=== PATIENT | female | born 1945 | race Caucasian/White ===

== ENCOUNTER 2020-07-28 07:16 | Inpatient (IN) ==
[~2020-07-28 07:16] MED LIST: *HR* HYDROmorphone (PF) 1 MG/ML SYRINGE IVP PRN; *HR* HYDROmorphone 2 MG TABLET PO PRN; *HR* Labetalol 20 MG/4 ML SYRINGE IVP PRN; *HR* OxyCODONE Immed Rel 5 MG TABLET PO PRN; Acetaminophen IV 1,000 MG/100 ML BAG IVPB ONE; Famotidine 20 MG/2 ML VIAL IVP ONE; Vancomycin 1,000 MG, Sodium Chloride IRRigation 1,000 ML IR ONE
[2020-07-28] MEDS ORDERED: *HR* Heparin 5,000 UNIT/ML VIAL ONE (07:34)
[2020-07-28] MEDS ORDERED: *HR* Rocuronium Bromide 50 MG/5 ML VIAL ONE (07:34)
[2020-07-28] MEDS ORDERED: Lidocaine -MPF 2% 2 ML VIAL ONE ×2 (07:34→11:33)
[2020-07-28] MEDS ORDERED: *HR* Succinylcholine 200 MG/10 ML VIAL IVP ONE (07:34)
[2020-07-28] MEDS ORDERED: *HR* Propofol 200 MG/20 ML VIAL IVP ONE (07:34)
[2020-07-28] MEDS ORDERED: *HR* FentaNYL (PF) 100 MCG/2 ML VIAL ONE ×2 (07:34→10:02)
[2020-07-28] MEDS ORDERED: Ondansetron 4 MG/2 ML VIAL ONE (07:34)
[2020-07-28] MEDS ORDERED: Lidocaine -MPF 4% 5 ML AMPUL ONE (07:34)
[2020-07-28] MEDS ORDERED: Dexamethasone 4 MG/ML VIAL ONE (07:34)
[2020-07-28] MEDS ORDERED: CeFAZolin Syr 2,000MG/20 ML 2,000 MG/20 ML SYRINGE IVPB ONE (07:39)
[2020-07-28] MEDS ORDERED: Vancomycin 500 MG in 0.9 % Sodium Chloride Mini Bag 100 ML IVPB ONE ×2 (07:39→21:00)
[2020-07-28] MEDS ORDERED: Ipratropium/Albuterol Neb 3 ML IH ONE (07:44)
[2020-07-28] MEDS ORDERED: Ringers Solution, Lactated 1,000 ML IVC SCH (07:45)
[2020-07-28] MEDS ORDERED: Heparin 1,000 UNITS/500 mL 500 ML ONE (07:56)
[2020-07-28] MEDS ORDERED: Protamine Sulfate 50 MG/5 ML VIAL IVP ONE (07:56)
[2020-07-28] MEDS ORDERED: Vancomycin 1,000 MG VIAL ONE (07:56)
[2020-07-28] MEDS ORDERED: Bupivacaine-MPF 0.25% 10 ML VIAL ONE (07:56)
[2020-07-28] MEDS ORDERED: Albumin Human 5% 12.5 GM/250 ML IV.SOLN ONE ×2 (08:09→08:46)
[2020-07-28] MEDS ORDERED: NiCARdipine 2.5 MG/10 ML Syringe IVPB ONE (08:10)
[2020-07-28] MEDS ORDERED: *HR* Vasopressin 20 UNIT/ML VIAL ONE (08:10)
[2020-07-28] MEDS ORDERED: *HR* Phenylephrine 10 MG/ML VIAL ONE (08:16)
[2020-07-28] MEDS ORDERED: Acetaminophen IV 1,000 MG/100 ML BAG IVPB ONE (09:53)
[2020-07-28] MEDS ORDERED: Calcium Gluconate 1,000 MG/10 ML VIAL ONE ×2 (09:57→11:31)
[2020-07-28] MEDS ORDERED: *HR* PHENYLEPHRINE 1,000 MCG/10 ML SYRINGE IVP ONE (10:14)
[2020-07-28] MEDS ORDERED: Furosemide 40 MG/4 ML VIAL ONE (11:31)
[2020-07-28] MEDS ORDERED: Sugammadex Sodium 200 MG/2 ML VIAL IV ONE (11:33)
[2020-07-28] MEDS ORDERED: *HR* Labetalol 20 MG/4 ML SYRINGE IVP ONE (11:57)
[2020-07-28] MEDS ORDERED: *HR* HYDROcodone/Acet 5/325 mg TABLET PO PRN (13:34)
[2020-07-28] MEDS ORDERED: Acetaminophen 325 MG TABLET PO PRN (13:34)
[2020-07-28] MEDS ORDERED: *HR* LORazepam 0.5 MG TABLET PO PRN (13:34)
[2020-07-28] MEDS ORDERED: *HR* OxyCODONE Immed Rel 5 MG TABLET PO PRN (13:34)
[2020-07-28] MEDS ORDERED: *HR* Labetalol 20 MG/4 ML SYRINGE IVP PRN (13:34)
[2020-07-28] MEDS ORDERED: Ondansetron 4 MG/2 ML VIAL IVP PRN (13:34)
[2020-07-28] MEDS ORDERED: Naloxone 0.4 MG/ML INJ IVP PRN (13:34)
[2020-07-28] MEDS ORDERED: 0.9 % Sodium Chloride 1,000 ML IVC SCH (13:34)
[2020-07-28] MEDS: *HR* Metoprolol 5 MG/5 ML VIAL IVP SCH ×2 (14:07→17:35)
[2020-07-28 14:37] LABS: Basophils % 0.2 %; Hematocrit 37.7 % (35.3-44.9); Hemoglobin 11.9 g/dL (11.5-15.4); Immature Granulocytes % 0.6 % (0-4); Lymphocytes # 0.5 K/mcL (0.6-4.6); Lymphocytes % 5.4 %; Mean Corpuscular HGB Conc 31.6 g/dL (31.6-35.5); Mean Corpuscular Hemoglobin 31.9 pg (28.0-33.3); Mean Corpuscular Volume 101.1 fL (83.0-100.0); Mean Platelet Volume 9.2 fL (9.4-12.4); Monocytes # 0.2 K/mcL (0.0-1.3); Monocytes % 2.2 %; Neutrophils # 8.2 K/mcL (1.6-8.9); Platelet Count 220 K/mcL (140-400); Red Blood Count 3.73 M/mcL (3.82-4.97); Red Cell Distribution Width 13.3 % (11.5-14.5); Segmented Neutrophils % 91.6 %
[2020-07-28] MEDS: Ipratropium/Albuterol Neb 3 ML IH SCH ×2 (15:39→22:40)
[2020-07-28] MEDS: Budesonide/Formoterol 160/4.5 1 PUFF INH IH SCH (22:40)
[2020-07-29] MEDS: *HR* Metoprolol 5 MG/5 ML VIAL IVP SCH ×2 (00:04→07:11)
[2020-07-29] MEDS: Ipratropium/Albuterol Neb 3 ML IH SCH ×2 (03:53→09:39)
[2020-07-29] MEDS ORDERED: *HR* Heparin 5,000 UNIT/ML VIAL SQ SCH (06:00)
[2020-07-29] MEDS ORDERED: BuPROPion SR (12 HR) 100 MG TABLET PO SCH (09:00)
[2020-07-29] MEDS ORDERED: Aspirin 81 MG TAB.CHEW PO SCH (09:00)
[2020-07-29] MEDS ORDERED: Multivit/Ca/Min/Fe/FA 1 TAB TABLET PO SCH (09:00)
[2020-07-29] MEDS: Budesonide/Formoterol 160/4.5 1 PUFF INH IH SCH (09:39)
[2020-07-29 11:17] VITALS: BP 102/43
== END 2020-07-29 13:31 | disposition home or self-care (01) | DRG 38 ==
LOC: SAMDAY 07:16 → 2NNU 08:30
PROVIDERS: ADMIT Surgery; ATTEND Surgery

== ENCOUNTER 2022-01-14 18:57 | Observation (INO) ==
[2022-01-14 19:07] VITALS: TEMP 98.5
[2022-01-14] MEDS ORDERED: Ipratropium/Albuterol Neb 3 ML IH ONE (20:23)
[2022-01-14 21:10] LABS: Basophils % 0.1 %; Hemoglobin 9.4 g/dL (11.5-15.4); Immature Granulocytes % 0.5 % (0-4); Lymphocytes # 0.4 K/mcL (0.6-4.6); Lymphocytes % 2.3 %; Mean Corpuscular HGB Conc 29.4 g/dL (31.6-35.5); Mean Corpuscular Hemoglobin 26.1 pg (28.0-33.3); Mean Corpuscular Volume 88.9 fL (83.0-100.0); Mean Platelet Volume 9.2 fL (9.4-12.4); Monocytes # 0.9 K/mcL (0.0-1.3); Monocytes % 5.1 %; Neutrophils # 15.5 K/mcL (1.6-8.9); Nucleated Red Blood Cells 0.1 /100 WBC (0); Platelet Count 428 K/mcL (140-400); Red Cell Distribution Width 16.3 % (11.5-14.5); White Blood Count 16.9 K/mcL (4.3-11.1)
[2022-01-14 21:46] LABS: Albumin 2.9 g/dL (3.5-5.7); Albumin/Globulin Ratio 1.3 (1.1-2.2); Bilirubin,Total 0.6 mg/dL (0.3-1.0); Calcium 7.6 mg/dL (8.6-10.3); Globulin 2.2 g/dL (2.4-3.5); Potassium 2.7 mEq/L (3.5-5.1); Total Protein 5.1 g/dL (6.4-8.9); Troponin I 0.04 ng/mL (< 0.04)
[2022-01-14 21:47] LABS: Bilirubin,Urine Negative (Negative); Blood,Urine Negative (Negative); Clarity,Urine Clear (Clear); Color,Urine Yellow (Yellow); Glucose,Urine (UA) Normal (Normal); Hyaline Casts,Urine Moderate per lpf (None Seen); Ketones,Urine Negative (Negative); Leukocyte Esterase,Urine Negative (Negative); Mucus,Urine Few per lpf (None-Few); Nitrite,Urine Negative (Negative); Protein,Urine Trace mg/dL (Neg-Trace); RBC,Urine 0-3 per hpf (0-3); Specific Gravity,Urine 1.018 (1.010-1.025); Squamous Epithelial Cell,Urine Few per hpf (None-Few); WBC,Urine 0-3 per hpf (0-3)
[2022-01-14] MEDS ORDERED: cefTRIAXone 2,000 MG in 0.9 % Sodium Chloride 20 ML IVP ONE (21:50)
[2022-01-14] MEDS ORDERED: Azithromycin 500 MG in 0.9 % Sodium Chloride 250 ML IVPB ONE (21:50)
[2022-01-14] MEDS ORDERED: Potassium Effervescent 25 MEQ TABLET.EFF PO ONE (21:51)
[2022-01-14 22:17] LABS: Influenza A PCR Negative (Negative); Influenza B PCR Negative (Negative); Resp. Syncytial Virus PCR Negative (Negative)
[2022-01-14 22:18] LABS: SARS-CoV-2 by PCR (In House) Negative (Negative)
[2022-01-14] MEDS ORDERED: Naloxone 0.4 MG/ML INJ IVP PRN (22:42)
[2022-01-14 23:11] VITALS: BP 127/42; PULSE 92; O2SAT 98
[2022-01-15] MEDS ORDERED: 0.9 % Sodium Chloride 1,000 ML ONE (00:01)
[2022-01-15] MEDS ORDERED: *HR* EPINEPHrine 1 MG/10 ML SYRINGE IVP ONE (04:47)
[2022-01-15] MEDS ORDERED: EPINEPHrine 1 MG/ML VIAL IV ONE (04:47)
== END 2022-01-15 04:48 | disposition expired ==
LOC: 3NENU 18:57 → EMEROOARM 18:57 → 3NENU 23:10
PROVIDERS: ADMIT Family Medicine; ATTEND Family Medicine